=== PATIENT | female | born 1950 | race Caucasian/White ===

== ENCOUNTER → 2019-12-02 10:03 | Outpatient (CLI) | payer MEDICARE, SELFPAY ==
--- NOTE | ~2019-12-02 | MR_ITS ---
EXAMINATION: MR ankle RT wo con DATE: 12/02/2019 11:15 INDICATION: Right ankle pain and swelling with limited range of motion. TECHNIQUE: Magnetic resonance imaging (MRI) of the right ankle was performed without intravenous cont rast. Sequences included sagittal, coronal, and axial proton-density weighted fast spin echo without and with fat saturation. COMPARISON: Right ankle radiographs dated 12/01/2012 FINDINGS: Medial ankle ligaments: Deep and superficial deltoid ligaments as well as the spring ligament are normal. Lateral ankle ligaments: The anterior and posterior inferior tibiofibular ligaments are normal. There is a small amount of het erotopic ossification along the fibular side of the anterior talofibular ligament which along with mi ld thickening of the anterior talofibular, calcaneofibular and posterior talofibular ligaments are a ll consistent with scarring related to chronic sprains. No surrounding soft tissue edema to suggest a cute injury. Tendons: Mild enthesopathy at the distal Achilles tendon. Minimal fluid along the peroneal tendon sheath consi stent with minimal tenosynovitis. There is mild tendinopathy and longitudinal split tear along the pe roneus brevis tendon distal to the level of the tip of the lateral malleolus. The tibialis anterior a nd extensor hallucis longus and extensor digitorum longus tendons are normal. The tibialis posterior, flexor digitorum longus and flexor hallucis longus tendons are normal. Small amount of fluid along t he tibialis posterior tendon consistent with mild tenosynovitis. Plantar fascia: Mild thickening and mild increased signal of the proximal plantar aponeurosis consistent with chronic enthesopathy without appreciable surrounding soft tissue marrow edema to suggest acute plantar fasci itis. Bones/other: Bone alignment is normal. No fracture. Moderate osteoarthritis at the first metatarsophalangeal joint . Additional mild osteoarthritis at a few of the tarsal metatarsal joints. Additional mild osteoarthr itis at the intercuneiform articulation with likely degenerative subarticular cystic change in the me dial cuneiform along its articulation with the mid cuneiform. Fluid: No right ankle joint effusion or other abnormal fluid collections. IMPRESSION: 1. Polyarticular osteoarthritis, moderate severity at the first metatarsophalangeal joint and mild at several joints in the midfoot. 2. Scarring and small heterotopic ossification over the lateral stabilizing ligaments of the ankle co nsistent with sequela of chronic sprain. 3. Mild tibialis posterior and peroneal tenosynovitis with mild tendinopathy and longitudinal split t ear of the peroneus brevis tendon. 4. Mild enthesopathy at the calcaneal insertions of the Achilles tendon and plantar aponeurosis. Reviewed, dictated and finalized at location A. IMPRESSION: 1. Polyarticular osteoarthritis, moderate severity at the first metatarsophalan geal joint and mild at several joints in the midfoot. 2. Scarring and small heterotopic ossification over the lateral stabilizing lig aments of the ankle consistent with sequela of chronic sprain. 3. Mild tibialis posterior and peroneal tenosynovitis with mild tendinopathy an d longitudinal split tear of the peroneus brevis tendon. 4. Mild enthesopathy at the calcaneal insertions of the Achilles tendon and dashawn ntar aponeurosis.
== END ==
DX: M19.071 Primary osteoarthritis, right ankle and foot (principal)
CPT/HCPCS: 73721

== ENCOUNTER 2020-02-10 12:07 | Emergency (ER) | payer MEDICARE, SELFPAY ==
--- NOTE | ~2020-02-10 | XR_ITS ---
EXAMINATION: XR foot RT min 3V DATE: 02/10/2020 12:35 INDICATION: Right foot pain. TECHNIQUE: 4 views of right foot were obtained. COMPARISON: None. FINDINGS: There is a nondisplaced transverse fracture of proximal diaphysis of fifth metatarsal. Ther e is severe osteoarthritis of first metatarsophalangeal joint and mild osteoarthritis of some of the interphalangeal joints and midfoot joints. There are enthesophytes at the posterior and plantar aspec ts of calcaneal tuberosity. IMPRESSION: 1. Nondisplaced transverse fracture of proximal diaphysis of fifth metatarsal. 2. Polyarticular osteoarthritis. Reviewed, dictated and finalized at location A.
[2020-02-10 12:14] VITALS: BP 200/95; PULSE 90; RESP 18; TEMP 36.4; O2SAT 100
--- NOTE | 2020-02-10 12:20 | ED.LOWEXIN ---
HPI - Extremity Injury (Lower) General Chief Complaint: Extremity Injury, Lower Stated Complaint: R foot injury Time Seen by Provider: 02/10/20 12:12 Source: patient Mode of arrival: wheelchair Limitations: no limitations History of Present Illness HPI Narrative: Patient is a 69-year-old female who presents complaining of right foot pain x3 days. Patient reports increased pain with ambulation. She denies known injury. She denies taking [id number] medications for pain. She reports mild swelling and pain with palpation. She denies any other complaints. MD complaint: foot injury Related Data Allergies Allergy/AdvReac Type Severity Reaction Status Date / Time No Known Allergies Allergy Mild Verified 05/16/10 10:17 Review of Systems Review of Systems: Narrative: CONSTITUTIONAL: Denies fever, chills, or sweats. EYES: Denies visual changes, redness, or discharge. ENT: Denies rhinorrhea, congestion, sore throat, or otalgia. CARDIOVASCULAR: Denies chest pain, palpitations, or edema. RESPIRATORY: Denies cough or dyspnea. GASTROINTESTINAL: Denies abdominal pain, nausea, vomiting, or diarrhea. GENITOURINARY: Denies dysuria or hematuria. SKIN: Denies rash or itching. MUSCULOSKELETAL: Reports right foot pain NEUROLOGIC: Denies headache, numbness, dizziness, or weakness. PSYCHIATRIC: Denies anxiety or depression. PMFSH Past Medical History Medical History Anxiety Depression HTN (hypertension) M?ni?re's disease Postmenopausal Surgical History Surgical History H/O breast biopsy H/O dilation and curettage H/O tubal ligation Family History Family History Other Afib Arthritis COPD (chronic obstructive pulmonary disease) GERD (gastroesophageal reflux disease) Heart disease Social History Social History (Updated 02/10/20 @ 12:26 by RAJAN Taylor) Smoking status: Never smoker Alcohol intake: never Substance use: never Exam Narrative: Exam Narrative: GENERAL: Well-appearing, well-nourished, and in no acute distress. HEAD: Normocephalic, atraumatic. EYES: No redness or drainage. ENT: Mucous membranes pink and moist. CHEST: No respiratory distress. Clear to auscultation. HEART: Regular rate and rhythm. No murmur appreciated. Normal peripheral pulses. EXTREMITIES: Right foot edema over the 4th and 5th metatarsals, pain with palpation to dorsal and plantar 5th metatarsal, no warmth or erythema, + pedal pulse and capillary refill intact. SKIN: Warm, dry, no rash. NEURO: No focal deficits. Alert and oriented x3. Gait steady. PSYCH: Normal affect. No signs of depression or anxiety. Course Vital Signs Vital signs: Vital Signs Temperature 36.4 C L 02/10/20 12:14 Pulse Rate 90 02/10/20 12:14 Respiratory Rate 18 02/10/20 12:14 Blood Pressure 200/95 H 02/10/20 12:14 Pulse Oximetry 100 02/10/20 12:14 Temperature 36.4 C L 02/10/20 12:14 Pulse Rate 90 02/10/20 12:14 Respiratory Rate 18 02/10/20 12:14 Blood Pressure 200/95 H 02/10/20 12:14 Pulse Oximetry 100 02/10/20 12:14 Updated blood pressure of 142/70. Reviewed. Patient has been instructed to follow-up with her PCP regarding her blood pressure. Procedures Orthopedic Splinting/Casting Injury #1: Splinting/Casting Date: 02/10/20 Splinting/Casting Time: 13:33 Side: right Lower Extremity Injury Location: foot OCL: short leg Pre-Procedure Neuro Vascular Exam: normal Post-Procedure Neuro Vascular Exam: normal Other Orthopedic Equipment: crutches Additional Comments: Splint placed by nursing, neurovascular check pre and post split are normal. MDM - Extremity Injury (Lower) MDM Narrative Medical decision making narrative: Per x-ray, patient has aNondisplaced transverse fracture of proximal saumya
[2020-02-10 13:30] VITALS: BP 142/70; PULSE 80; RESP 18; O2SAT 99
[2020-02-10 13:56] VITALS: BP 147/62; PULSE 78; RESP 18; O2SAT 99
== END 2020-02-10 13:57 | disposition home or self-care (01) ==
PROVIDERS: Emergency Provider Nurse Practitioner
DX: S92.354A Nondisplaced fracture of fifth metatarsal bone, right foot, initial encounter for closed fracture (principal); I10 Essential (primary) hypertension; H81.09 Meniere's disease, unspecified ear; X58.XXXA Exposure to other specified factors, initial encounter
CPT/HCPCS: 29515; 73630; 99284